=== PATIENT | male | born 1960 | race Caucasian/White ===

== ENCOUNTER 2024-01-29 06:35 | Day surgery (SDC) | payer BC ==
[2024-01-29] MEDS: Lactated Ringers 1,000 ML IV SCH (07:06)
[2024-01-29] MEDS ORDERED: 50% Dextrose in Water 50 ML Syringe ONE (07:18)
[2024-01-29] MEDS ORDERED: fentaNYL 50 MCG/ML SDV ONE (07:25)
[2024-01-29] MEDS ORDERED: Propofol 200 MG/20 ML SDV ONE ×2 (07:25)
[2024-01-29] MEDS ORDERED: Ketamine 200 MG/20 ML MDV ONE (07:25)
[2024-01-29] MEDS: 50% Dextrose in Water 50 ML Syringe IVPUSH ONE (07:26)
== END 2024-01-29 08:54 | disposition home or self-care (01) ==
LOC: CC.SDS 06:35
PROVIDERS: ATTEND Family Medicine
DX: Z12.11 Encounter for screening for malignant neoplasm of colon (principal); I10 Essential (primary) hypertension; E11.9 Type 2 diabetes mellitus without complications; E78.5 Hyperlipidemia, unspecified; Z79.84 Long term (current) use of oral hypoglycemic drugs; Z79.85 Long-term (current) use of injectable non-insulin antidiabetic drugs; Z79.4 Long term (current) use of insulin; Z79.899 Other long term (current) drug therapy
CPT/HCPCS: 00812; J2704; J3010; J3490; J7120